=== PATIENT | female | born 1945 | race Caucasian/White ===

== ENCOUNTER → 2016-12-03 | Outpatient (CLI) | payer OTHER ==
[~2016-12-03] MED LIST: ASPEC325 PO; CLTP PO; ERGO1CAP35 PO; MULT-506 PO; NAPR-1169 PO; OXYC-57 PO; SERT50TA PO; THYROLAR PO
--- NOTE | 2016-12-03 12:55 | DIAGNOSTIC IMAGING REPORT ---
MRI LEFT SHOULDER NO CONTRAST CLINICAL HISTORY: LEFT SHOULDER PAIN, R/O ROTATOR CUFF TEAR COMPARISON STUDY: No previous studies for comparison. FINDINGS: Imaging was performed in the sagittal, axial, and coronal planes. There are no areas of marrow edema to indicate occult fracture. The bicipital tendon appears intact. No labral tears are visualized. There is a full-thickness tear of the infraspinatus tendon with mild tendinous retraction. There is a full-thickness tear the supraspinatus tendon with no evidence of supraspinatus retraction. There is a moderate joint effusion. Several loose bodies are visualized. There is a subchondral cyst within the greater tuberosity. IMPRESSION: 1. Full-thickness tears of the supraspinatus and infraspinatus tendons with mild infraspinatus tendinosis retraction 2. Joint effusion with loose bodies. Electronically signed by: Ranjith Zhang M.D. 12/03/2016 12:53 PM Dictated Date/Time: 12/03/2016 12:47 PM
== END | disposition home or self-care (01) ==
LOC: C.MRIBC 11:20
PROVIDERS: ATTEND Orthopaedic Surgery
DX: M75.102 Unspecified rotator cuff tear or rupture of left shoulder, not specified as traumatic (principal); M25.412 Effusion, left shoulder; M24.012 Loose body in left shoulder

== ENCOUNTER → 2016-12-19 | Outpatient (CLI) | payer OTHER ==
[2016-12-19 12:37] LABS: BASO ABS # 0.05 K/uL (0-0.2); COMPLETE YES; EOS % 1.7 %; HEMATOCRIT 40.9 % (37-47); IG% 0.2 %; LYMPH % 18.1 %; LYMPH ABS # 0.95 K/uL (1.2-3.4); MEAN CELL VOLUME 91.9 fL (80-100); MEAN CORPUSCULAR HEMOGLOBIN 31.9 pg (25-34); MEAN CORPUSCULAR HGB CONC 34.7 g/dl (32-36); MEAN PLATELET VOLUME 11.1 fL (7.4-10.4); MONO % 10.3 %; NEUT % 68.7 %; PLATELET COUNT 252 K/uL (130-400); RED BLOOD COUNT 4.45 M/uL (4.2-5.4); WHITE BLOOD COUNT 5.25 K/uL (4.8-10.8)
[2016-12-19 13:07] LABS: ALB/GLOB RATIO 1.1 (0.9-2); ALKALINE PHOSPHATASE 83 U/L (45-117); ALT/SGPT 27 U/L (12-78); AST/SGOT 19 U/L (15-37); BLOOD UREA NITROGEN 21 mg/dl (7-18); BUN/CREATININE RATIO 30.7 (10-20); CALCIUM 8.9 mg/dl (8.5-10.1); CARBON DIOXIDE 26 mmol/L (21-32); CHLORIDE 109 mmol/L (98-107); CHOLESTEROL 218 mg/dl (0-200); CHOLESTEROL/HDL RATIO 2.8; CREATININE 0.68 mg/dl (0.60-1.20); GLUCOSE 97 mg/dl (70-99); HDL CHOLESTEROL 77 mg/dl; SODIUM 141 mmol/L (136-145); TRIGLYCERIDES 74 mg/dl (0-150); VERY LOW DENSITY LIPOPROT CALC 15 mg/dl
== END | disposition home or self-care (01) ==
LOC: C.LABSPEC 12:17
PROVIDERS: ATTEND Internal Medicine
DX: E78.5 Hyperlipidemia, unspecified (principal); R73.9 Hyperglycemia, unspecified; E03.9 Hypothyroidism, unspecified

== ENCOUNTER → 2017-01-02 | Outpatient (CLI) | payer OTHER ==
--- NOTE | 2017-01-02 12:13 | DIAGNOSTIC IMAGING REPORT ---
RIGHT KNEE 2 VIEWS CLINICAL HISTORY: Twisting injury. History of partial knee replacement. FINDINGS: AP and crosstable lateral views of the right knee are compared to study dated 09/18/2008. The skeletal structures are osteopenic. A hemiarthroplasty is present in the medial compartment and is in near-anatomic alignment. No periprosthetic lucency is identified. There is moderate degenerative narrowing at the patellofemoral articulation. Mild narrowing is noted in the medial compartment. There are tiny patellar enthesophytes. No large joint effusion is identified. The overlying soft tissues are within normal limits. An indeterminant 6 mm ossific density is present inferior to the patella and may represent a joint body. IMPRESSION: 1. No acute bony abnormality is seen in the right knee. A hemiarthroplasty is in near-anatomic alignment. 2. Question a calcified joint body. Electronically signed by: Jeremy Bueno M.D. 01/02/2017 12:12 PM Dictated Date/Time: 01/02/2017 12:10 PM
== END | disposition home or self-care (01) ==
LOC: C.RAD 11:29
PROVIDERS: ATTEND Internal Medicine
DX: M25.561 Pain in right knee (principal); Z96.651 Presence of right artificial knee joint

== ENCOUNTER → 2017-06-29 | Outpatient (CLI) | payer OTHER ==
[2017-06-29 17:25] LABS: HEPATITIS B AB NEG
== END | disposition home or self-care (01) ==
LOC: C.LABSPEC 16:46
PROVIDERS: ATTEND Internal Medicine
DX: Z20.5 Contact with and (suspected) exposure to viral hepatitis (principal)

== ENCOUNTER → 2017-11-18 | Outpatient (CLI) | payer OTHER | END | disposition home or self-care (01) | LOC: C.LABSPEC 14:24 | PROVIDERS: ATTEND Internal Medicine | DX: T14.8XXA Other injury of unspecified body region, initial encounter (principal); W57.XXXA Bitten or stung by nonvenomous insect and other nonvenomous arthropods, initial encounter ==

== ENCOUNTER → 2018-01-14 | Outpatient (CLI) | payer OTHER ==
--- NOTE | 2018-01-14 15:52 | DIAGNOSTIC IMAGING REPORT ---
LUMBAR SPINE W/O CONTRAST HISTORY: Pain. Radiculopathy. DEGENERATIVE DISC DISEASE, LUMBAR RADICULOPATHY TECHNIQUE: Multiplanar multisequence MRI of the lumbar spine was performed without the use of contrast. COMPARISON: None. FINDINGS: For the purpose of the report the L5-S1 disc space will be located on axial image 26 of 30. Severe degenerative disc change throughout the entire lumbar region. Posterior extra dural defects at all levels. Mild scoliosis. L1-L2: Mild multifactorial narrowing of the spinal canal. Minimal grade 1 reverse subluxation of L1 on L2. Broad-based bulging disc. Significant osteophytic narrowing of the neuroforamina bilaterally. L2-L3: Significant multifactorial spinal stenosis. Broad-based disc herniation. Hypertrophic changes of posterior elements. Moderate narrowing left neuroforamina. L3-L4: Significant multifactorial spinal stenosis. Broad-based disc herniation. Significant narrowing of the neuroforamina bilaterally at osteophytic bases. L4-L5: Significant multifactorial spinal stenosis. Broad-based disc herniation. Considerable narrowing of the neuroforamina bilaterally. L5-S1: Central bulging disc with mild impact anterior aspect thecal sac. Mild narrowing neuroforamina bilaterally. IMPRESSION: 1. Multifactorial significant spinal stenosis from L2 through L5. 2. Mild multifactorial narrowing of the spinal canal at L1-L2. 3. Central bulging disc L5-S1. 4. Severe degenerative disc change throughout the entire lumbar region. The above report was generated using voice recognition software. It may contain grammatical, syntax or spelling errors. Electronically signed by: Vini Fu M.D. 01/14/2018 3:50 PM Dictated Date/Time: 01/14/2018 3:48 PM
== END | disposition home or self-care (01) ==
LOC: C.MRI 13:52
PROVIDERS: ATTEND Internal Medicine
DX: M51.16 Intervertebral disc disorders with radiculopathy, lumbar region (principal)

== ENCOUNTER 2020-06-01 08:04 | Observation (INO) ==
--- NOTE | 2020-05-21 11:18 | Anesthesiology Consultation ---
Date of Service May 21, 2020 Assessment & Plan Chart Review Chart Review: Acceptable Risk for Surgery and Patient NOT seen in Pre Admission Testing Consults Requested none ASA ASA3 Proposed Anesthesia Anesthesia Type: MAC Spinal Regional Regional Laterality: Right Site: Adductor Canal History Surgery Operation Date: 06/01/20 08:25 Proposed Procedures p Left Total Knee Arthroplasty - Junaid Stern, Height/Weight Height: 4 ft 11 in Weight: 58.06 kg Allergies Allergy/AdvReac Type Severity Reaction Status Date / Time Penicillins Allergy Mild HIVES, Verified 05/21/20 10:31 PRURITIS Medications Home Medications Medication Instructions Recorded Confirmed Last Taken montelukast 10 mg tablet 10 mg PO QAM 11/10/18 05/21/20 02/20/19 sertraline 50 mg tablet 50 mg PO QAM 12/20/18 05/21/20 02/20/19 ascorbic acid (vitamin C) [Vitamin 250 mg PO QPM 02/20/19 05/21/20 02/19/19 C] calcium carbonate [Calcium 600] 600 mg PO QPM 02/20/19 05/21/20 02/19/19 cholecalciferol (vitamin D3) 5,000 unit PO QPM 02/20/19 05/21/20 02/19/19 [Vitamin D3] meloxicam 15 mg PO QPM 02/20/19 05/21/20 02/19/19 multivitamin 1 tab PO QPM 02/20/19 05/21/20 02/19/19 thyroid (pork) [[place] Thyroid] 60 mg PO QAM 02/20/19 05/21/20 02/20/19 vitamin B complex 1 tab PO QPM 11/07/19 05/21/20 Unknown aspirin 650 mg PO DAILY PRN 05/21/20 05/21/20 Unknown Past Medical History Medical History Anxiety Cataract BOTH EYES Depression Environmental allergies Hyperlipidemia NO MEDS CURRENTLY Hypothyroidism Mitral valve prolapse No murmur noted on exam at PAT 11/14/19 (ECHO > 25 years ago) Osteoarthritis Spinal stenosis Exercise / Class Metabolic Activity III < 4 Walking/Shop/Light housework Past Family History Family History Sister FHx: stroke Mother FHx: lung cancer Family history of esophageal cancer Aunt FHx: diabetes mellitus Family/Other FHx: diabetes mellitus Past Surgical History Surgical History History of hysterectomy History of partial knee replacement right Hx of colonoscopy Hx of hammer toe correction X3 Past Anesthesia History No Hx of Anesthesia Complications and No Family Hx of Anesthesia Complications History of PONV No Hx of PONV and No Hx of Motion Sickness Social History Smoking Status: Current every day smoker tobacco type: cigarettes Smoking cigarettes per day: 10 CIGS A DAY-OFF AND ON 30 YRS Do You Dip or Chew Tobacco: No Hx Alcohol Use: Yes Alcohol type: beer alcohol intake frequency: a few times a week Hx Substance Use: No Testing Laboratory Results Blood Type A Positive 05/08/20 10:44 Antibody Screen NEGATIVE 05/08/20 10:44 Electrocardiogram Date: 11/14/19 Findings: + NSR @ (at 71), + LVH and + NSST changes Chest X-Ray Date: 11/14/19 Findings: + NAD
--- NOTE | 2020-05-31 08:07 | History & Physical Report ---
Date of Service May 31, 2020 Assessment & Plan (1) Arthritis of knee, left: We will proceed with a left total knee arthroplasty. Postoperatively she will be started on aspirin for DVT prophylaxis and kept overnight in the hospital for postoperative medical management. She plans to use energy physical therapy upon discharge. Present on Admission?: Yes History of Present Illness Chief Complaint: Primary osteoarthritis of the left knee Primary Care Provider: Jono Boland MD Angelica is a pleasant 74-year-old female who is been complaining of chronic increasing left knee pain. X-rays and clinical examination have been diagnostic for advanced osteoarthritis of the left knee. After failing conservative treatment, she has elected proceed with a left total knee arthroplasty. Allergies Allergy/AdvReac Type Severity Reaction Status Date / Time Penicillins Allergy Mild HIVES, Verified 05/21/20 10:31 PRURITIS Home Medications Home Medications Medication Instructions Recorded Confirmed Type montelukast 10 mg tablet 10 mg PO QAM 11/10/18 05/21/20 History sertraline 50 mg tablet 50 mg PO QAM 12/20/18 05/21/20 History ascorbic acid (vitamin C) [Vitamin 250 mg PO QPM 02/20/19 05/21/20 History C] calcium carbonate [Calcium 600] 600 mg PO QPM 02/20/19 05/21/20 History cholecalciferol (vitamin D3) 5,000 unit PO QPM 02/20/19 05/21/20 History [Vitamin D3] meloxicam 15 mg PO QPM 02/20/19 05/21/20 History multivitamin 1 tab PO QPM 02/20/19 05/21/20 History thyroid (pork) [[place] Thyroid] 60 mg PO QAM 02/20/19 05/21/20 History vitamin B complex 1 tab PO QPM 11/07/19 05/21/20 History aspirin 650 mg PO DAILY PRN 05/21/20 05/21/20 History Past Med/Surg History Medical History Anxiety Cataract BOTH EYES Depression Environmental allergies Hyperlipidemia NO MEDS CURRENTLY Hypothyroidism Mitral valve prolapse No murmur noted on exam at PAT 11/14/19 (ECHO > 25 years ago) Osteoarthritis Spinal stenosis Surgical History History of hysterectomy History of partial knee replacement right Hx of colonoscopy Hx of hammer toe correction X3 Family History Sister FHx: stroke Mother FHx: lung cancer Family history of esophageal cancer Aunt FHx: diabetes mellitus Family/Other FHx: diabetes mellitus Social History Smoking Status: Never smoker Cigarettes Per Day: 10 CIGS A DAY-OFF AND ON 30 YRS; Second Hand Exposure: Yes (PARENTS SMOKED/SPOUSE SMOKED); Hx Alcohol Use: Yes Alcohol type: beer Hx Substance Use: No Preferred Language: Welsh Communication Ability: Effective [employer]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 Beliefs That Will Affect Care: None marital status: Current Living Situation: Family current occupational status: retired Feels Safe at Home: Yes Assistive Devices: Cane and Glasses Review of Systems Review of Systems: All systems reviewed & are unremarkable except as noted in HPI & below Physical Exam Constitutional: WD/WN, vitals as above Eyes: PERRL, conjunctivae normal, anicteric sclerae ENMT: external ear and nose normal, oropharynx normal Neck: trachea midline, no thyromegaly Respiratory: normal respiratory effort Cardiovascular: RRR, no murmur, no edema Gastrointestinal (Abdomen): normal bowel sounds, soft, nontender, no hepatosplenomegaly Musculoskeletal: On physical examination of the left knee there is a trace effusion. There is near full range of motion and no evidence of instability. There is significant tenderness palpation along the medial and lateral joint lines and over the distal femoral condyles. Psychiatric: A+Ox3, euthymic affect Results & Data Results & Data ([facility]) Diagnostic Findings Radiographs of the left knee demonstrate advanced osteoarthritis with joint space narrowing osteophyte formation and [id number] articulation. PG Care Time/CCT Total # of Minutes Spent Total Time Spent with Patient: Total time spent is greater than 50% in coordination of care (as documented) at patient's floor/unit and/or counseling patient: Coding Level of Care Code 72325 OBS Care - Level 2 Diagnoses Arthritis of knee, left M17.12
[~2020-06-01 08:04] MED LIST changes: +ACETAMINOPHEN 500 MG TAB PO SCH; -ASPEC325 PO; +BUPIVACAINE 0.5 % 5 MG/1 ML PF 10ML VIAL ONE; +CEFAZOLIN 1000MG 1,000 MG/7.5 ML SYR IV SCH; -CLTP PO; -ERGO1CAP35 PO; +FAMOTIDINE 20 MG TAB PO SCH; +GABAPENTIN 300 MG CAP PO SCH; +LR 500ML BOLUS, THEN 15ML/HR IV SCH; +LR 60ML/HR IV SCH; -MULT-506 PO; -NAPR-1169 PO; -OXYC-57 PO; +ROPIVACAINE 0.5% HCL/PF 150 MG, BUPIVACAINE 0.5% MPF 30 ML, EPINEPHrine 30MG/30ML (OR U... INSTIL SCH; -SERT50TA PO; -THYROLAR PO; +TRANEXAMIC ACID 1,000 MG **IV Intra-op IV SCH; +TRANEXAMIC ACID 1,000 MG **IV Pre-op IV SCH; +dexAMETHasone 4 MG TAB PO SCH
[2020-06-01] MEDS ORDERED: fentaNYL citrate 100 MCG/2 ML VIAL ONE (08:12)
[2020-06-01] MEDS ORDERED: PROPOFOL IV EMULSION 10 MG/ML 20 ML VIAL IV ONE (08:12)
[2020-06-01] MEDS ORDERED: MIDAZOLAM HCL 1 MG/ML 2ML VIAL ONE (08:12)
[2020-06-01] MEDS ORDERED: LIDOCAINE HCL 2% 2 ML VIAL/AMP(20MG/ML) INFIL ONE (08:12)
--- NOTE | 2020-06-01 08:13 | History & Physical Bridge Note ---
Date of Service June 01, 2020 History & Physical Bridge Note I have examined the patient, reviewed the History & Physical and in the interval since the performance of the History & Physical I have noted the following changes of clinical significance: no changes noted
[2020-06-01] MEDS ORDERED: ORTHO JOINT ANESTHETIC ONE (08:44)
[2020-06-01] MEDS ORDERED: ePHEDrine sulfate 50 MG/ML AMP IV PRN (09:42)
[2020-06-01] MEDS ORDERED: ONDANSETRON INJ 2 MG/ML 2 ML VIAL IV PRN ×2 (09:42→12:08)
[2020-06-01] MEDS ORDERED: fentaNYL citrate 100 MCG/2 ML VIAL IV PRN (09:42)
[2020-06-01] MEDS ORDERED: ATROPINE SULFATE 0.1 MG/ML 10ML SYR IV PRN (09:42)
--- NOTE | 2020-06-01 10:52 | Operative Report ---
PG Post Operative Report Pre & Post Diagnosis Operation Date: 06/01/20 10:00 Pre-Op Diagnosis: Left Knee Osteoarthritis Post-Op Diagnosis: Left Knee Osteoarthritis I identified the patient and participated in the time-out.: Yes Procedure Operation Date: 06/01/20 10:00 Actual Procedures p Left Total Knee Arthroplasty(Left) - Junaid Stern DO Surgeon Junaid Stern DO [employer] Sergeant Junaid Otero PAC Estimated Blood Loss 10 Findings Consistent with Post-Op Diagnosis Specimens Left femoral and tibial bone Complications none Disposition Disposition: Recovery Room Indications Angelica is a pleasant 74-year-old female who presented my office with chronic in creasing left knee pain. X-rays and clinical examination were diagnostic for advanced osteoarthritis of the left knee. After failing conservative treatment, she elected to proceed with a left total knee arthroplasty. Description of Procedure Implants used: I used a Sue Persona total knee arthroplasty system with a size 7 standard f emur, E tibia, 32 patella, and a size 11 medial congruent polyethylene bearing. All components were cemented in place with Palacos G cement. Angelica arrived [facility] for the above procedure. She was seen in the preoperative holding area and the operative extremity was identified and signed. She was given a preoperative antibiotic, TXA, a spinal anesthetic and an adductor nerve block. She was taken back to the operating room and laid on the table in supine position. She was given basic sedation. The operative knee was then prepped and draped in sterile fashion. A timeout was done, and the patient and the operative extremity was properly identified. A midline incision was made directly over the patella. Dissection was taken down to the extensor mechanism. A subvastus arthrotomy was used. The medial retinaculum was released and the fat pad was mostly excised. The knee was flexed and the ACL, PCL, and meniscus were removed. A drill was sent down the center of the femoral canal followed by an intramedullary lyndon. Off that lyndon a distal femoral cutting block was placed. 9 mm was resected off the distal femur at 5 of valgus. A posterior referencing AP sizing guide was then placed on the distal femur. The femur measured to be a size 7 standard. 2 drill holes were placed in 3 of external rotation. A 4-in-1 cutting block was then impacted into place. Anterior, posterior, and chamfer cuts were then made. The proximal tibia was then exposed. An external tibial alignment guide was placed. A tibial cut guide was then anchored in place and the proximal tibia was then resected. The posterior aspect of the knee was then opened up and any additional meniscus fragments and osteophytes were removed. The tibia measured to be a size E. The tibial plate was then placed in the appropriate rotation and the tibia was drilled and punched. Trial components were then placed. I used a size 11 medial congruent polyethylene insert. The knee was brought through a full range of motion and felt to be stable. The peg holes for the femoral component were then drilled. The patella was then everted and 9 mm was resected off the posterior aspect of t he patella. The patella measured to be a size 32. 3 peg holes were then drilled. A trial patella was placed. The knee was once again brought through a full range of motion and felt to be stable. Trial components were then removed. The surrounding soft tissues were injected with 100 cc of an orthopedic pain control cocktail. All components were then cemented into place with Palacos G cement. The final polyethylene insert was then snapped into place. Once cement was dry the tourniquet was deflated. Hemostasis was obtained. A dilute betadyne lavage was then done for 3 minutes. The joint was then irrigated with normal saline solution. The subvastus arthrotomy was then closed with #1 Vicryl suture. The skin was closed with 2-0 Vicryl, 3-0V lock suture, and kimmy. A Silverlon and a soft compressive dressing were placed. She was then transferred to a hospital bed and taken to the postanesthesia care unit in stable condition. She tolerated the procedure well. Junaid Otero PA-C, was present for the entire procedure. He was critical for patient positioning, prepping, draping, retraction exposure, wound closure and application of sterile dressing. I attest to the content of the Intraoperative Record and any orders documented therein. Any exceptions are noted below.
--- NOTE | 2020-06-01 11:43 | XRay Report ---
LEFT KNEE 2 VIEWS History: Left total knee arthroplasty. Degenerative arthritis. Postop. FINDINGS: The patient is status post a left total knee arthroplasty. The hardware is intact. No fract ure or dislocation. Skin kimmy are in place. IMPRESSION: Left total knee arthroplasty. No evidence for hardware complication. ACT 112: Negative or not required by law. Electronically signed by: Alex Malagon M.D. 06/01/2020 11:42 AM
[2020-06-01] MEDS ORDERED: bisacodyL 10 MG SUPP PR PRN (12:08)
[2020-06-01] MEDS ORDERED: MAGNESIUM HYDROXIDE SUSP 30 ML UDC PO PRN (12:08)
[2020-06-01] MEDS ORDERED: METOCLOPRAMIDE HCL INJ 5 MG/ML 2 ML VIAL IV PRN (12:08)
[2020-06-01] MEDS ORDERED: HYDROmorphone INJ 0.5 MG/0.5 ML SYR IV PRN (12:08)
[2020-06-01] MEDS ORDERED: NALOXONE HCL 0.4 MG/1 ML VIAL/CARP IV PRN (12:08)
[2020-06-01] MEDS ORDERED: OXYCODONE HCL IR 5 MG TAB (IMMEDIATE RELEASE) PO PRN (12:08)
[2020-06-01] MEDS: SODIUM CHLORIDE 0.9% 1000ML 1,000 ML IV SCH ×2 (12:14→21:51)
--- NOTE | 2020-06-01 13:34 | Anesthesiology Progress Note ---
Date of Service June 01, 2020 Anesthesia Post Procedure Vital Signs Vital Signs: Temp Pulse Pulse Resp BP Pulse Ox 06/01/20 13:00 97.9 F 84 16 118/63 96 06/01/20 12:27 78 16 121/71 96 06/01/20 11:40 97.7 F 84 18 114/55 L 94 06/01/20 11:30 90 18 117/60 96 06/01/20 11:20 93 H 18 109/54 L 94 06/01/20 11:14 97.5 F L 97 H 16 104/55 L 97 06/01/20 08:59 74 18 130/63 99 06/01/20 08:28 98.4 F 83 20 123/59 L 96 Transfer of Care Handoff Completed per policy Notes Mental Status: alert / awake / arousable and participated in evaluation Patient Amnestic to Procedure: Yes Nausea / Vomiting: adequately controlled Pain: adequately controlled Airway Patency, RR, SpO2: stable & adequate BP & HR: stable & adequate Hydration State: stable & adequate Neuraxial Anesthesia: was administered and sensory block is resolving Anesthetic Complications: no major complications apparent and Pt Satisfied with anesthetic care
[2020-06-01] MEDS: KETOROLAC TROMETHAMINE 15 MG/ML VIAL IV SCH ×3 (14:10→23:34)
[2020-06-01] MEDS: ACETAMINOPHEN 500 MG TAB PO SCH ×2 (15:22→21:35)
[2020-06-01] MEDS: CEFAZOLIN 2000MG 2,000 MG/15 ML SYR IV SCH (18:41)
[2020-06-01] MEDS ORDERED: SENNA 8.6 MG TAB PO SCH (21:00)
[2020-06-01] MEDS: ASPIRIN 81 MG ECTAB PO SCH (21:25)
[2020-06-01] MEDS: DOCUSATE SODIUM 100 MG CAP PO SCH (21:25)
[2020-06-01] MEDS: SYMBICORT INH SCH (22:23)
[2020-06-01 23:32] VITALS: PULSE 71
[2020-06-02] MEDS: CEFAZOLIN 2000MG 2,000 MG/15 ML SYR IV SCH (01:05)
[2020-06-02 03:16] VITALS: TEMP 97.7; O2SAT 93
[2020-06-02] MEDS: KETOROLAC TROMETHAMINE 15 MG/ML VIAL IV SCH ×2 (05:56→12:39)
[2020-06-02] MEDS: ACETAMINOPHEN 500 MG TAB PO SCH ×2 (05:56→12:40)
[2020-06-02] MEDS ORDERED: ARMOUR THYROID 30 MG TAB PO SCH (06:30)
[2020-06-02 06:38] LABS: Hematocrit (blood only) 35.9 % (37-47); Hemoglobin 12.1 g/dL (12.0-16.0); Mean Corpuscular Hemoglobin 31.4 pg (25-34); Mean Corpuscular Hgb Conc 33.7 g/dL (32-36); Mean Corpuscular Volume 93.2 fL (80-100); Mean Platelet Volume 10.7 fL (7.4-10.4); Platelet Count 208 K/uL (130-400); RDW Coefficient of Variation 13.3 % (11.5-14.5); RDW Standard Deviation 45.1 fL (36.4-46.3); Red Blood Count 3.85 M/uL (4.2-5.4); White Blood Count 10.26 K/uL (4.8-10.8)
[2020-06-02 07:07] LABS: BUN Creatinine Ratio 26.4 (10-20); Calcium 8.8 mg/dl (8.5-10.1); Creatinine Clr Calc Pharmacy 66.9 ml/min; Est GFR (African American) 105.8; Est GFR (Non-African American) 91.3; Potassium 3.6 mmol/L (3.5-5.1)
--- NOTE | 2020-06-02 07:56 | Orthopedic Progress Note ---
Date of Service June 02, 2020 Assessment & Plan (1) Status post left knee replacement: Overall she is doing very well. She is not having much pain in the left knee. She will be seen by physical therapy this morning for ambulation and range of motion exercises. She is on aspirin for DVT prophylaxis. We will discharge her to home later today. She can follow-up with orthopedics in 2 weeks. Present on Admission?: No Admission and Anticipated Discharge Date Admission Date: June 01, 2020 Lexy Dominguez was seen and examined at bedside this morning. Overall she is doing very well. She is not having much pain in the left knee. She has been up and ambulating to the bathroom. She has no complaints. Physical Exam Musculoskeletal: On physical examination of the left knee, the dressing is clean and dry. Her leg is out in full extension. She has active dorsiflexion and plantarflexion of the left ankle. Results & Data ([facility]) Vital Signs (Past 12 Hours) Vital Signs Temp Pulse Resp BP BP Pulse Ox 06/02/20 03:16 36.5 C 71 14 128/64 93 06/01/20 23:29 36.4 C L 71 16 125/54 L 95 06/01/20 22:24 36.7 C 66 18 139/66 96 Diagnostic Findings Postoperative x-rays of the left knee show the prosthesis to be in anatomic alignment without any evidence of fracture, dislocation, or loosening. PG Care Time/CCT Total # of Minutes Spent Total Time Spent with Patient: Total time spent is greater than 50% in coordination of care (as documented) at patient's floor/unit and/or counseling patient: Coding Level of Care Code None Diagnoses Status post left knee replacement Z96.652
--- NOTE | 2020-06-02 07:58 | Discharge Summary ---
Date of Service June 02, 2020 Admission HPI Per Admitting Provider Angelica is a pleasant 74-year-old female who is been complaining of chronic increasing left knee pain. X-rays and clinical examination have been diagnostic for advanced osteoarthritis of the left knee. After failing conservative treatment, she has elected proceed with a left total knee arthroplasty. Principal Diagnosis Left knee replacement Discharge Data Allergies Allergy/AdvReac Type Severity Reaction Status Date / Time Penicillins Allergy Mild HIVES, Verified 06/01/20 08:30 PRURITIS Consultations 06/01/20 12:08 Consult Case Management - Discharge Planning Routine Procedures Performed Operation Date: 06/01/20 10:00 Actual Procedures p Left Total Knee Arthroplasty(Left) - Junaid Stern DO Ordered Studies 06/01/20 05:00 US - OR guided needle placemen Routine Hospital Course (1) Status post left knee replacement: On June 01, [address] [facility] and underwent a left knee replacement without complication. She had a spinal anesthetic. Postoperatively she was started on aspirin for DVT prophylaxis and transferred to the general orthopedic floors. Her hospital course was uneventful. On postop day #1 her H&H was stable and her pain was well controlled. She was able to participate well with physical therapy doing ambulation and range of motion exercises. She was then discharged home. She will follow-up with orthopedics in 2 weeks. Total Time Total Time Spent Total Time Spent (In Minutes): 20 Discharge Plan Discharge Items Patient Disposition: Home - Home Health Services Reason For Visit: Left Knee Degenerative Joint Disease Discharge Diagnosis: Left knee replacement Activity: As commented below Non-emergency contact: Surgeon Call non-emergency contact if: your wound has increased redness and your wound has increased drainage Follow-up/Referrals: Jono Boland MD [Primary Care Provider] - Diet: Regular Addtl Attending Provider Instructions: Activity and Therapy Recommendations: * If you are using [facility] then therapy will be provided at your home until they feel you have accomplished all of your goals. * If you are using [facility] then Physical Therapy will be provided until they feel you are ready to start Outpatient Physical Therapy. * If you are not using home therapy then Outpatient Physical Therapy should start about 3-5 days from your day of surgery. Therapy will last about 6-10 weeks * It is important not to put a pillow under your knee when you are relaxing or sleeping. It is just as important to make sure you are getting your knee perfectly straight as it is to regain your knee bend. * You were shown a series of exercises in the hospital. Do these exercises three times each day including the exercises you were shown in physical therapy. * Get up and walk several times each day. For the first four weeks, try not to stand or walk for more than one hour at a time. If you do stand or walk for more than one hour, you will not hurt anything, but your leg will likely swell. * As you feel comfortable, you may change from the walker or crutches to a cane and then to independent walking. Medications: * Narcotic You will likely be sent home from the hospital with a prescription for the narcotic pain medication that worked best throughout your stay. * Aspirin Most patients will be required to take Aspirin 81mg twice a day for 6 weeks after surgery. This is obtained [id number] and a prescription is not necessary. * Other medications may be prescribed for specific circumstances. If you have any questions, please call the office at . * Resume previous home medications unless otherwise instructed TEDs/Elastic Stockings: The white elastic stockings help limit swelling and prevent blood clots from forming in your legs.~ The more you wear them, the more they work. Wear them for six weeks. Dressing Care: Leave the Silverlon dressing in place for 7 days. After 7 days you may remove the dressing. If the incision is not draining then you may leave the kimmy open to air. If there is a little bit of drainage or if the kimmy are getting stuck on your clothing then cover the incision with a dry dressing. The kimmy will be removed at your 2 week follow-up appointment. Showering: You may shower with the Silverlon dressing in place. Do not let the shower spray hit the dressing directly. Pat the Silverlon dressing dry. If the dressing becomes wet underneath, then simply remove the dressing. Keep the incision dry until you are 7 days out from the day of surgery. After 7 days you may remove the Silverlon dressing and shower with the kimmy exposed. Let soapy water run over the kimmy and pat them dry. Do not scrub or soak the incision. Things To Watch For: * Drainage from the incision site that occurs more than one week after your surgery. * Increased redness at the incision site. * Fever above 102 degrees Fahrenheit. * Unusual chest pain or shortness of breath. * Call [facility] at with any of the above problems Follow-Up Visit: Follow-up with Dr. Stern's PA (Junaid Otero) 2-3 weeks after your day of surgery. He will remove your kimmy and answer any questions. If you have any additional questions or concerns, Dr Stern is usually in the office at the same time and will be available An appointment was probably scheduled when you signed-up for surgery in the office. If you have any questions call Office Instructions: More detailed instructions as well as Frequently Asked Questions were provided in a folder by our office when you signed-up for surgery. Please review these instructions when you get home. If you have any further questions or concerns, please feel free to call the office at [phone] Pending Studies at Discharge: No Stand-Alone Forms: My [facility], Smoking Cessation Medications and DC Order Prescriptions: New oxycodone 5 mg Tablet 5 mg PO Q4H PRN (Reason: pain) Qty: 30 RF: 0 aspirin 81 mg Tablet,Delayed Release (Dr/Ec) 81 mg PO BID 42 Days Qty: 0 RF: 0 Continued montelukast 10 mg tablet 10 mg PO QAM RF: 0 sertraline 50 mg tablet 50 mg PO QAM RF: 0 meloxicam 15 mg tablet 15 mg PO QPM RF: 0 thyroid (pork) [Morley Thyroid] 60 mg tablet 60 mg PO QAM RF: 0 multivitamin Tablet 1 tab PO QPM RF: 0 calcium carbonate [Calcium 600] 600 mg calcium (1,500 mg) Tablet 600 mg PO QPM RF: 0 ascorbic acid (vitamin C) [Vitamin C] 500 mg Tablet 250 mg PO QPM RF: 0 cholecalciferol (vitamin D3) [Vitamin D3] 5,000 unit Tablet 5,000 unit PO QPM RF: 0 vitamin B complex Tablet 1 tab PO QPM RF: 0 Symbicort aerosol NEB BID RF: 0 Discontinued aspirin 325 mg Tablet 650 mg PO DAILY PRN (Reason: Pain) RF: 0 No Action budesonide-formoterol [Symbicort] 160-4.5 mcg/actuation Hfa Aerosol Inhaler 2 puff INHALATION BID RF: 0 Discharge Orders: Discharge Order (Routine); Ordered 06/02/20 Ordered By: Junaid Stern Admission Data Admit Date/Time: 06/01/20 11:20 Attending Provider: Junaid Stern Admit Provider: Junaid Stern Primary Care Provider: Jono Boland Coding Level of Care Code D/C Day Management <30 mins Diagnoses Status post left knee replacement Z96.652
[2020-06-02] MEDS ORDERED: dexAMETHasone 4 MG TAB PO SCH (08:00)
[2020-06-02 08:14] VITALS: BP 139/66
[2020-06-02] MEDS ORDERED: MONTELUKAST SODIUM 10 MG TABLET PO SCH (09:00)
[2020-06-02] MEDS ORDERED: FLUTICASONE/VILANTEROL 200/25MCG 14 PUFFS/INHALER INH SCH (09:00)
[2020-06-02] MEDS ORDERED: SERTRALINE HCL 50 MG TABLET PO SCH (09:00)
[2020-06-02] MEDS ORDERED: MULTIVITAMIN TAB PO SCH (09:00)
[2020-06-02] MEDS: ASPIRIN 81 MG ECTAB PO SCH (09:03)
[2020-06-02] MEDS: DOCUSATE SODIUM 100 MG CAP PO SCH (09:04)
[2020-06-02] MEDS: SYMBICORT INH SCH (09:05)
== END 2020-06-02 14:42 | disposition home health service (06) ==
LOC: ASU 08:04 → 3E 08:04
DX: Z79.82 Long term (current) use of aspirin; F32.9 Major depressive disorder, single episode, unspecified; Z79.899 Other long term (current) drug therapy; M17.12 Unilateral primary osteoarthritis, left knee; E03.9 Hypothyroidism, unspecified; F17.210 Nicotine dependence, cigarettes, uncomplicated; M48.00 Spinal stenosis, site unspecified; Z88.0 Allergy status to penicillin